=== PATIENT | female | born 2000 | race Caucasian/White ===

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

== ENCOUNTER → 2022-03-28 | Outpatient (CLI) | payer OTHER, SELFPAY | END | disposition home or self-care (01) | PROVIDERS: PCP Pediatrics; Visit Provider Family Medicine | DX: Z11.3 Encounter for screening for infections with a predominantly sexual mode of transmission (principal); Z12.4 Encounter for screening for malignant neoplasm of cervix ==

== ENCOUNTER → 2023-08-22 | Outpatient (CLI) | payer OTHER, SELFPAY ==
--- OUTSIDE RECORDS SUMMARY | 2023-08-22 12:17 | XMS RPT_ITS | CCD ---
Author Name Unknown Address [address] [place] [address] Organization [facility] Care Team Providers Care Rag Shredder Name Role Phone VANJOAQUÍNE A Unavailable Unavailable REFERRED, SELF Unavailable Unavailable VAN, KEITH A Unavailable Unavailable VAN, KEITH A Unavailable Unavailable REFERRED, SELF Unavailable Unavailable VAN, KEITH A Unavailable Unavailable SHERYL, JOSÉ MIGUEL Unavailable Unavailable VAN, KEITH A Unavailable Unavailable SHERYL, JOSÉ MIGUEL Unavailable Unavailable SHERYL, JOSÉ MIGUEL Unavailable Unavailable Jose RaulBria sanchez Unavailable Unavailable Geletka, Evans Unavailable Unavailable Van, Keith A Unavailable Unavailable Bria Blunt Unavailable Unavailable Minda Yeboah Unavailable Unavailable Van, Keith A Unavailable Unavailable Unavailable Unavailable Unavailable Self, Referral Referring Unavailable Bria Meraz Attending Unavailable Keith Van Primary Care Unavailable Bria Meraz Attending Unavailable Keith Van Primary Care Unavailable Medications Completed/Discontinued Medications Medication Drug Class(es) Dates Sig (Normalized) Sig (Original) adapalene 0.001 mg/mg / benzoyl peroxide 0.025 mg/mg topical gel (19 sources) Retinoid Start: 08-23-2014 Epiduo 0.1-2.5 % External Gel Quantity: 0 Refills: 0 Ordered: 21-Sep-2014 DO Start : 23-Aug-2014 Active amoxicillin 500 mg oral capsule (19 sources) Penicillin-class Antibacterial Start: 03-16-2015 Amoxicillin 500 MG Oral Capsule Quantity: 0 Refills: 0 Ordered: 16-Mar-2015 DO Start : 16-Mar-2015 Active Problems Active Problems Problem Classification Problem Date Documented Date Episodic/Chronic Acquired foot deformities (10 sources) Acquired pes planus; Translations: [Flat foot] Episodic Joint disorders and dislocations; trauma-related (10 sources) Loose body in knee; Translations: [Loose body in knee] Chronic Joint disorders and dislocations; trauma-related (8 sources) Acute meniscal tear, medial; Translations: [Other specified aftercare] Episodic Other acquired deformities (19 sources) Scoliosis deformity of spine; Translations: [Scoliosis [and kyphoscoliosis], idiopathic] Chronic Other connective tissue disease (19 sources) Quadriceps weakness; Translations: [Muscle weakness (generalized)] Episodic Other non-traumatic joint disorders (19 sources) Effusion, left knee; Translations: [Effusion of joint of left knee] Episodic Other non-traumatic joint disorders (18 sources) Knee pain; Translations: [Left knee pain, unspecified chronicity] Episodic Other non-traumatic joint disorders (20 sources) Knee stiff; Translations: [Stiffness of joint, not elsewhere classified, lower leg] Episodic Other non-traumatic joint disorders (10 sources) Effusion of right knee joint; Translations: [Effusion of joint, lower leg] Episodic Other non-traumatic joint disorders (20 sources) Pain in right knee; Translations: [Right knee pain, unspecified chronicity] Episodic Residual codes; unclassified (10 sources) History finding; Translations: [Other specified conditions influencing health status] Episodic Spondylosis; intervertebral disc disorders; other back problems (20 sources) Prolapsed lumbar intervertebral disc; Translations: [Displacement of lumbar intervertebral disc without myelopathy] Onset: 05-23-2022 Chronic Spondylosis; intervertebral disc disorders; other back problems (2 sources) Low back pain; Translations: [Lumbago] Episodic Sprains and strains (2 sources) Low back strain; Translations: [Sprain of lumbar] Episodic Unclassified (2 sources) Low back pain, unspecified; Translations: [Low back pain, unspecified] Onset: 05-23-2022 Past or Other Problems Problem Classification Problem Date Documented Date Episodic/Chronic Acquired foot deformities (9 sources) Acquired pes planus; Translations: [Acquired bilateral flat feet] Immunizations and screening for infectious disease (2 sources) Encounter for screening for infections with a predominantly sexual mode of transmission; Translations: [Encounter for screening for infections with a predominantly sexual mode of transmission] Onset: 03-19-2017 Episodic Other non-traumatic joint disorders (9 sources) Effusion of right knee joint; Translations: [Effusion of right knee] Unclassified (1 source) Low back pain, unspecified; Translations: [Low back pain, unspecified] Onset: 05-23-2022 NEGATED: Highlighted row has not occurred!Residual codes; unclassified (20 sources) Disease Episodic Results Test Name Value Interpretation Reference Range Facil ity Vital Signs Date Time Vital Sign Value Performing Clinician Callie palacio 05-23-2022 14:31-0500 Body height 177.8 cm Keith Van Work Phone: LA-Usoeuoydpfjx-Ph ntor 209 Work Phone: 05-23-2022 14:31-0500 Body mass index (BMI) [Ratio] 25.45 kg/m2 Keith Van Work Phone: CI-Bjwjvhlzgeig-Ru ntor 209 Work Phone: 05-23-2022 14:31-0500 Body surface area Derived from formula 1.98 m2 Keith Meenu Van Work Phone: IO-Sdmywtdsrsnq-Ha ntor 209 Work Phone: 05-23-2022 14:31-0500 Body weight 80.45 kg Keith Meenu Van Work Phone: ER-Odlsjimvjkyb-Pp ntor 209 Work Phone: 05-23-2022 14:31-0500 Diastolic blood pressure 78 mm[Hg] Keithsergio Van Work Phone: GS-Noyfaumomhkm-Ln ntor 209 Work Phone: 05-23-2022 14:31-0500 Heart rate 74 /min Keith Van Work Phone: UJ-Xyfmmxfkojfs-Zj ntor 209 Work Phone: 05-23-2022 14:31-0500 Respiratory rate 16 /min Keith Corrigan Van Work Phone: KN-Fjhgcwsktult-Wp ntor 209 Work Phone: 05-23-2022 14:31-0500 Systolic blood pressure 148 mm[Hg] Keith Van Work Phone: XN-Qyhyrckjxwmt-Ll ntor 209 Work Phone: Encounters Encounter Date Encounter Type Care Provider Facility Start: 05-23-2022 Office outpatient vi sit 15 minutes Keith Van Work Phone: SB-Gksfttssufik-Cuaef r 209 Work Phone: Start: 05-23-2022 ambulatory Referral [facility] Facility: 94 Start: 01-05-2021 POV, Provider: Sudhir Kramer, Status: Pen, Time: 11:45 AM Keith Van Work Phone: [facility] Work Phone: Start: 01-04-2021 Patient encounter procedure Keith Corrigan Griffin Work Phone: [facility] Work Phone: Start: 12-15-2020 Patient encounter procedure Keith Meenu Griffin Work Phone: [facility] Work Phone: Start: 12-06-2020 Patient encounter procedure Keith Van Work Phone: [facility] Work Phone: Start: 12-06-2020 PTFUADULT6, Provider : Evans Ham, Status: Pen, Time: 11:00 AM Keith Van Work Phone: AQ-Yxfsaqyakpsu-Syonx raffaele Work Phone: Start: 12-05-2020 Postop follow up vis it related to original px Keith Van Work Phone: WD-Zvrrkkynmuxp-Ypiho raffaele Work Phone: Start: 11-29-2020 Patient encounter procedure Keith Meenu Van Work Phone: [facility] Work Phone: Start: 11-24-2020 Chart Update Keith wheat Work Phone: LT-Spksuzrerrkd-Wtttq n 210 Work Phone: Start: 08-17-2019 Patient encounter procedure Bria Blunt [facility] Work Phone: Start: 08-10-2019 Patient encounter procedure Bria Blunt [facility] Work Phone: Start: 08-03-2019 Patient encounter procedure Bria DOLL [facility] Work Phone: Start: 07-29-2019 Patient encounter procedure Bria DOLL [facility] Work Phone: Start: 07-22-2019 Patient encounter procedure Bria DOLL [facility] Work Phone: Start: 07-20-2019 Patient encounter procedure Bria Blunt [facility] Work Phone: Start: 07-15-2019 Patient encounter procedure Bria DOLL [facility] Work Phone: Start: 07-13-2019 Patient encounter procedure Bria Blunt [facility] Work Phone: Start: 07-10-2019 Patient encounter procedure Bria Blunt [facility] Work Phone: Start: 07-08-2019 Patient encounter procedure Bria Blunt [facility] Work Phone: Start: 07-06-2019 Patient encounter procedure Bria Blunt [facility] Work Phone: Start: 07-02-2019 Patient encounter procedure Bria Blunt [facility] Work Phone: Start: 06-22-2019 Patient encounter procedure Bria Blunt [facility] Work Phone: Start: 06-09-2019 Patient encounter procedure Bria DOLL [facility] Work Phone: Start: 06-02-2019 Patient encounter procedure Bria Blunt [facility] Work Phone: Start: 05-25-2019 Patient encounter procedure Bria Blunt [facility] Work Phone: Start: 05-18-2019 Patient encounter procedure Bria Blunt [facility] Work Phone: Start: 05-11-2019 Patient encounter procedure Bria DOLL [facility] Work Phone: Start: 05-04-2019 Patient encounter procedure Bria DOLL [facility] Work Phone: Start: 04-29-2019 Patient encounter procedure Bria DOLL [facility] Work Phone: Start: 04-21-2019 Patient encounter procedure Bria Blunt [facility] Work Phone: Start: 04-15-2019 Patient encounter procedure Bria Blunt [facility] Work Phone: Start: 03-24-2019 Patient encounter procedure Bria Blunt [facility] Work Phone: Start: 03-19-2019 Patient encounter procedure Bria Blunt [facility] Work Phone: Start: 03-12-2019 Patient encounter procedure Bria Blunt [facility] Work Phone: Start: 03-05-2019 Patient encounter procedure Bria Blunt [facility] Work Phone: Start: 02-23-2019 Patient encounter procedure Bria Blunt [facility] Work Phone: Start: 02-04-2019 Patient encounter procedure Bria Blunt [facility] Work Phone: Start: 02-02-2019 Patient encounter procedure Bria Blunt [facility] Work Phone: Start: 01-29-2019 Patient encounter procedure Bria Blunt [facility] Work Phone: Start: 01-26-2019 Patient encounter procedure Bria Blunt [facility] Work Phone: Start: 01-22-2019 Patient encounter procedure Bria DOLL [facility] Work Phone: Start: 01-19-2019 Patient encounter procedure Bria DOLL [facility] Work Phone: Start: 01-14-2019 Patient encounter procedure Bria DOLL [facility] Work Phone: Start: 01-05-2019 Patient encounter procedure Bria DOLL [facility] Work Phone: Start: 12-29-2018 Patient encounter procedure Bria DOLL [facility] Work Phone: Start: 12-26-2018 Patient encounter procedure Bria DOLL [facility] Work Phone: Start: 12-18-2018 Patient encounter procedure Bria DOLL [facility] Work Phone: Start: 12-15-2018 Patient encounter procedure Bria DOLL [facility] Work Phone: Start: 11-25-2018 Patient encounter procedure Bria DOLL [facility] Work Phone: Start: 04-30-2017 End: 04-30-2017 Ambulatory KEITH Corrigan [facility] Start: 04-10-2017 End: 04-10-2017 Ambulatory KEITH Corrigan [facility] Start: 03-26-2017 End: 03-27-2017 Ambulatory [facility] Facility:[facility] Start: 03-19-2017 End: 03-20-2017 Ambulatory [facility] Facility:[facility] Start: 03-19-2017 End: 03-24-2017 Ambulatory [facility] Facility:[facility] Procedures Date Procedure Procedure Detail Performing Clinician Arthroscopy of knee Keith Van Work Phone: Plan of Treatment Date Care Activity Detail Author Start: 01-25-2021 [email or web address], Provider : Evans Ham, Status: Pen, Time: 3:00 PM PTFUADULT6, Provider: Evans Ham, Status: Pen, Time: 3:00 PM [facility] Work Phone: Start: 01-18-2021 PTFUADULT6, Provider : Evans Ham, Status: Pen, Time: 3:00 PM PTFUADULT6, Provider: Evans Ham, Status: Pen, Time: 3:00 PM [facility] Work Phone: Start: 01-05-2021 POV, Provider: Sudhir Kramer, Status: Pen, Time: 11:45 AM POV, Provider: Sudhir Kramer, Status: Pen, Time: 11:45 AM [facility] [place] Work Phone: Start: 01-04-2021 PTFUADULT6, Provider : Evans Ham, Status: Pen, Time: 2:00 PM PTFUADULT6, Provider: Evans Ham, Status: Pen, Time: 2:00 PM [facility] Work Phone: Start: 12-21-2020 PTFUADULT6, Provider : Evans Ham, Status: Pen, Time: 9:00 AM PTFUADULT6, Provider: Evans Ham, Status: Pen, Time: 9:00 AM [facility] Work Phone: Start: 12-15-2020 PTFUADULT6, Provider : Evans Ham, Status: Pen, Time: 2:00 PM PTFUADULT6, Provider: Evans Ham, Status: Pen, Time: 2:00 PM [facility] Work Phone: Start: 12-06-2020 PTFUADULT6, Provider : Evans Ham, Status: Pen, Time: 11:00 AM PTFUADULT6, Provider: Evans Ham, Status: Pen, Time: 11:00 AM [facility] Work Phone: Start: 12-05-2020 POV, Provider: Sudhir Kramer, Status: Pen, Time: 4:30 PM POV, Provider: Sudhir Kramer, Status: Pen, Time: 4:30 PM [facility] Work Phone: Start: 12-05-2020 POV, Provider: Sudhir Kramer, Status: Pen, Time: 1:45 PM POV, Provider: Sudhir Kramer, Status: Pen, Time: 1:45 PM LM-Wtgefjeckjus-Sl sman 210 Work Phone: Start: 11-29-2020 PTEVALADUL, Provider : Evans Ham, Status: Pen, Time: 1:45 PM PTEVALADUL, Provider: Evans Ham, Status: Pen, Time: 1:45 PM GL-Aagsmbzbtybc-Hu sman 210 Work Phone: [facility] Work Phone: NEGATED: Highlighted row has been ruled out! Planned Goals not documented [facility] Work Phone: Payers Date Payer Category Payer Private Health Insurance [id number] 1999 Unknown [id number] 1999 Unknown [id number] Unknown [facility] Social History Date Type Detail Facility High school student High school student M D-Grvkhozarxoz-Afsyv n 210 Work Phone: NEGATED: Highlighted row - - [facility] Work Phone: Functional Status Date Assessment Result Facility NEGATED: Highlighted row Functional performance Functional status health issues are not documented Disease [facility] Work Phone: Mental Status Date Assessment Result Facility NEGATED: Highlighted row Cognitive function [Interpretation] Cognitive status health issues are not documented Disease [facility] Work Phone: History of Present illness Narrative 05-13-2022 Note Date & Type Note Facility 05-13-2022 History of Present illness Narrative Ms. Mignon Garza is a 22-year-old otherwise healthy female who was seen in our clinic today with complaints of acute lower back pain that started on May 13, 2022. No trauma or injury. She was mainly sitting at [employer] when the pain started. She felt a sharp stabbing pain in her lower back along the lower lumbar region. She occasionally complains of pain in her buttocks and posterior thigh left worse than right. The first few days she had difficulty moving a lot of spasms. She took gabapentin for the first 3 days which she had at home as needed. It did help alleviate the pain. Currently today she states the pain is a little bit better is about 3-4 out of 10. Pain is worse with sitting and bending and lifting. Feels better when she is standing or laying on her stomach. She denies any bowel or bladder disturbances no saddle anesthesia. Currently she is not taking any medicine right now it is tolerable.Of note patient with history of lumbar surgery with Dr. Blunt around [id number]. At that time she was found to have L2-L3 disc herniation causing leg weakness and numbness and underwent decompression. She states that it was complicated by what sounds like CSF leakage at that time but she otherwise did well. She continue to play sports and school up until college. She would have chronic back pain but it was tolerable. She would continue exercises and stretches on her own.Patient does smoke marijuana occasionally recreational.. Occasionally drinks alcohol. She tries to workout 3 to 6 days a week. DB-Vdgdcrxkypqb-Lzqebc 209 Work Phone: History of Present illness Narrative Note Date & Type Note Facility History of Present illness Narrative The patient returns for follow up status post knee arthroscopy. Pain is minimal. Narcotics are no longer required. The patient is able to ambulate without an assistive device. Home exercises have been performed. Incisions are benign. The patient reports some mild clicking. JQ-Wlilqcvzyyfp-Lrbyueom Work Phone: History of Present illness Narrative Note Date & Type Note Facility History of Present illness Narrative Patient is around 3 weeks status post left knee arthroscopy for meniscectomy. She is progressing excellently and demonstrates full range of motion and quad activity is returning very nicely. She demonstrates a little bit of effusion of the left knee. She is increasing her exercise tolerance. She continued benefit from skilled physical therapy for progressive strength, eccentric control, and progression back to full walking and standing tolerance, as well as progression back to regular fitness activity.Response to treatment: decreased pain, improved joint mobility/ROM, improved motor control, decreased swelling and improved knowledge and understanding of condition. [facility] Work Phone: History of Present illness Narrative Note Date & Type Note Facility History of Present illness Narrative Pt presents today s/p left knee arthroscopy. Pt demos a decline in their functional mobility secondary to pain, decr ROM and strength, gait issues, edema/effusion, post op protocol limitations and precautions. They would benefit from skilled PT to address these deficits. She presents today with minimal pain and is already ambulating without brace or assistive device. She demonstrates excellent quad control for the first postoperative visit. Prognosis is good given overall health and motivation to resume full activity.Clinical Presentation: Stable and/or uncomplicated characteristics.Level of Complexity: lowProblem List: activity limitations, ADLs/IADLs/self care skills, decreased functional level, decreased knowledge of HEP, edema, gait/locomotion, motor function/control/tone, pain, participation restrictions, range of motion/joint mobility, strength and transfers. [facility] Work Phone: History of Present illness Narrative Note Date & Type Note Facility History of Present illness Narrative Patient continues to progress very well status post knee scope. Her range of motion is improving very nicely and her strength as well. She would continue to benefit from skilled physical therapy to decrease effusion, increase to full range of motion, increase strength, and resume regular ADLs and fitness activity.Response to treatment: decreased pain, improved joint mobility/ROM, improved strength and improved knowledge and understanding of condition. [facility] Work Phone: Summary Purpose Family History No Family History Records Found Mother Name Dates Details No pertinent family history( V49.89, Z78.9) Status:Active Father Name Dates Details No pertinent family history( V49.89, Z78.9) Status:Active Mother Name Dates Details No pertinent family history( V49.89, Z78.9) Status:Active Father Name Dates Details No pertinent family history( V49.89, Z78.9) Status:Active Mother Name Dates Details No pertinent family history( V49.89, Z78.9) Status:Active Father Name Dates Details No pertinent family history( V49.89, Z78.9) Status:Active Mother Name Dates Details No pertinent family history( V49.89, Z78.9) Status:Active Father Name Dates Details No pertinent family history( V49.89, Z78.9) Status:Active Mother Name Dates Details No pertinent family history( V49.89, Z78.9) Status:Active Father Name Dates Details No pertinent family history( V49.89, Z78.9) Status:Active Mother Name Dates Details No pertinent family history( V49.89, Z78.9) Status:Active Father Name Dates Details No pertinent family history( V49.89, Z78.9) Status:Active Mother Name Dates Details No pertinent family history( V49.89, Z78.9) Status:Active Father Name Dates Details No pertinent family history( V49.89, Z78.9) Status:Active Mother Name Dates Details No pertinent family history( V49.89, Z78.9) Status:Active Father Name Dates Details No pertinent family history( V49.89, Z78.9) Status:Active Mother Name Dates Details No pertinent family history( V49.89, Z78.9) Status:Active Father Name Dates Details No pertinent family history( V49.89, Z78.9) Status:Active Unknown Family Member Name Dates Details No pertinent family history: Mother, Father(V49.89, Z78.9) Status:Active Unknown Family Member Name Dates Details No pertinent family history: Mother, Father(V49.89, Z78.9) Status:Active Unknown Family Member Name Dates Details No pertinent family history: Mother, Father(V49.89, Z78.9) Status:Active Unknown Family Member Name Dates Details No pertinent family history: Mother, Father(V49.89, Z78.9) Status:Active Unknown Family Member Name Dates Details No pertinent family history: Mother, Father(V49.89, Z78.9) Status:Active Unknown Family Member Name Dates Details No pertinent family history: Mother, Father(V49.89, Z78.9) Status:Active Unknown Family Member Name Dates Details No pertinent family history: Mother, Father(V49.89, Z78.9) Status:Active Unknown Family Member Name Dates Details No pertinent family history: Mother, Father(V49.89, Z78.9) Status:Active Unknown Family Member Name Dates Details No pertinent family history: Mother, Father(V49.89, Z78.9) Status:Active Unknown Family Member Name Dates Details No pertinent family history: Mother, Father(V49.89, Z78.9) Status:Active Advance Directives No Advanced Directives Records FoundNo Advanced Directives Records FoundNo Advanced Directives Records FoundNo Advanced Directives Records FoundNo Advanced Directives Records FoundNo Advanced Directives Records Found Chief Complaint * DOS 11/24/20 * Status post 11 days left knee arthroscopic partial medial lateral meniscectomies New patient visit for low back pain. Additional Source Comments INFORMATION SOURCE (unrecogn ized section and content) DATE CREATED AUTHOR AUTHOR'S ORGANIZ ATION 12/25/2017 [facility] ([place]) DATE CREATED AUTHOR AUTHOR'S ORGANIZ ATION 11/14/2020 [facility] DATE CREATED AUTHOR AUTHOR'S ORGANIZ ATION 06/10/2021 [facility] DATE CREATED AUTHOR AUTHOR'S ORGANIZ ATION 05/26/2022 [facility] DATE CREATED AUTHOR AUTHOR'S ORGANIZ ATION 06/08/2022 [employer] Reason for Visit (unrecogniz ed section and content) Post-Op 11/24/20 . Patient is a 20-year-old female well-known to this clinic that presents today following postoperative L knee scope for left medial and lateral partial meniscectomy and removal of painful hardware.Referred by: Dr. Dugan- Op 11/24/20 . Patient is a 20-year-old female well-known to this clinic that presents today following postoperative L knee scope for left medial and lateral partial meniscectomy and removal of painful hardware.Referred by: Dr. Flowers FOR RECORDS PERTAINING TO PATIENTS WHO ARE OR HAVE BEEN ENROLLED IN A CHEMICAL DEPENDENCY/SUBSTANCEABUSE PROGRAM, SOME INFORMATION MAY BE OMITTED. This clinical summary was aggregated from multiple sources. Caution should be exercised in using it in the provision of clinical care. This summary normalizes information from multiple sources, and as a consequence, information in this document may materially change the coding, format and clinical context of patient data. In addition, data may be omitted in some cases. CLINICAL DECISIONS SHOULD BE BASED ON THE PRIMARY CLINICAL RECORDS. [facility] [employer] [facility]. provides no warranty or guarantee of the accuracy or completeness of information in this document.
[2023-08-22 14:28] LABS: Absolute Lymphocyte Count 1.34 X10^3/uL (0.83-4.51); Absolute Neutrophil Count 2.8 X10^3/uL (2.0-7.7); Basophil# 0.03 X10^3/uL; Basophil% 0.6 % (0-1); Eosinophil# 0.12 X10^3/uL; Eosinophils% 2.5 % (0-5); Hematocrit 37.4 % (37-47); Hemoglobin 12.7 g/dL (12.0-15.0); Lymphocyte # 1.34 X10^3/ul (0.83-4.51); Lymphocyte % 27.7 % (19-41); Mean Corpuscular Hgb 30.7 pg (27.0-32.0); Mean Corpuscular Volume 90.3 fL (81-99); Mean Platelet Vol. 9.9 fl (6.2-12.0); Monocyte# 0.54 X10^3/uL; Monocyte% 11.2 % (0-10); NRBC Flagged by Analyzer 0 % (0-5); Neutrophil # 2.79 X10^3/uL (2.7-7.7); Neutrophil % 57.8 % (47-70); Platelet Count 207 K/mm3 (150-450); RBC Distribution Width SD 42.6 fl (35.1-43.9); Red Blood Count 4.14 M/mm3 (4.2-5.4); White Blood Count 4.8 K/mm3 (4.4-11.0)
[2023-08-22 15:02] LABS: ALB/GLOB Ratio 1.3 RATIO (0.9-2.4); AST(SGOT) 18 U/L (15-37); Alanine Aminotransfer ALT/SGPT 19 U/L (13-56); Albumin, Serum 3.9 g/dL (3.2-5.0); Alkaline Phosphatase 45 U/L (45-117); Anion Gap 3 (5-15); BUN 9 mg/dL (7-18); BUN/Creat Ratio 10.9 RATIO (10-20); Calcium,Total 9.1 mg/dL (8.5-10.1); Chloride 107 mmol/L (98-107); Creatinine, Serum 0.82 mg/dL (0.55-1.02); EST Glomerular Filtration Rate 90 mL/min (>60); Est Glom Filt Rate - Afr Amer 109 mL/min (>60); Globulin 2.9 g/dL (2.2-4.2); Glucose 68 mg/dL (74-106); Potassium 4.1 mmol/L (3.5-5.1); Protein, Total 6.8 g/dL (6.4-8.2); Sodium Level 139 mmol/L (136-145); Thyroid Stim Hormone (TSH) 1.02 uIU/mL (0.358-3.74)
== END | disposition home or self-care (01) ==
LOC: BFHLAB 11:49
PROVIDERS: PCP Family Medicine; Visit Provider Family Medicine
DX: R00.0 Tachycardia, unspecified (principal); F41.1 Generalized anxiety disorder
CPT/HCPCS: 36415; 80053; 84443; 85025

== ENCOUNTER 2025-01-03 13:43 | Emergency (ER) | payer OTHER, SELFPAY ==
[2025-01-03 13:44] VITALS: BP 134/94; PULSE 91; RESP 16; TEMP 37.1; O2SAT 98
== END 2025-01-03 15:16 | disposition home or self-care (01) ==
PROVIDERS: Emergency Provider Emergency Medicine; PCP Family Medicine; Visit Provider Emergency Medicine
DX: S92.354A Nondisplaced fracture of fifth metatarsal bone, right foot, initial encounter for closed fracture (principal); S93.491A Sprain of other ligament of right ankle, initial encounter; X58.XXXA Exposure to other specified factors, initial encounter; Y93.41 Activity, dancing; F17.290 Nicotine dependence, other tobacco product, uncomplicated
CPT/HCPCS: 73610; 73630; 99283